=== PATIENT | female | born 1995 | race Caucasian/White ===

== ENCOUNTER 2021-03-01 00:53 | Inpatient (IN) ==
[2021-03-01] MEDS ORDERED: ONDANSETRON 4 MG/2 ML VIAL IV PRN ×2 (02:10→18:12)
[2021-03-01] MEDS ORDERED: MEPERIDINE 50 MG/1 ML VIAL IV PRN (02:10)
[2021-03-01] MEDS ORDERED: BUTORPHANOL 2 MG/ML VIAL IV PRN (02:10)
[2021-03-01 02:48] LABS: Basophils % 0.2 % (0.0-0.8); Eosinophils # 0.1 10*3/uL (0.0-0.87); Eosinophils % 1.2 % (0.00-10.9); Hematocrit 31.9 VOL% (35.7-47.0); Hemoglobin 10.2 GM/DL (12.0-16.0); Immature Granulocytes % 0.7 %; Immature Granulocytes Absolute 0.06 #; Lymphocytes # 1.7 10*3/uL (1.4-4.0); Lymphocytes % 19.6 % (21.3-54.2); Mean Corpuscular Volume 88.4 FL (87-102); Mean Platelet Volume 12.9 FL (9.6-12.0); Monocytes % 9.1 % (1.7-12.7); Neutrophils % 69.2 % (38.7-73.9); Platelet Count 168 T/CUMM (130-400); Red Blood Count 3.61 MC/CUMM (3.8-5.5); Red Cell Distribution Width 14.5 % (9.3-17.3); White Blood Count 8.6 T/CUMM (4-12)
[2021-03-01 03:41] LABS: Alanine Aminotransferase 13 U/L (13-56); Albumin 2.6 G/DL (3.4-5.0); Alkaline Phosphatase 137 U/L (45-117); Aspartate Amino Transferase 15 U/L (0-37); Bilirubin,Total < 0.39 MG/DL (0.20-1.00); Blood Urea Nitrogen 5 MG/DL (7-18); Calcium 9.2 MG/DL (8.5-10.1); Carbon Dioxide 24 MMOL/L (21-32); Estimated Glom Filtration Rate 201 ML/MIN; Glucose 95 MG/DL (74-106); Osmolality,Calculated 269.8 MOS/KG (273-304); Potassium 3.4 MMOL/L (3.5-5.1); Sodium 137 MMOL/L (136-145); Total Protein 7.2 G/DL (6.4-8.2)
[2021-03-01] MEDS ORDERED: ACETAMINOPHEN 325 MG TABLET PO PRN ×2 (03:47→18:12)
[2021-03-01] MEDS: LACTATED RINGERS 1,000 ML IV SCH ×2 (09:43→11:23)
[2021-03-01] MEDS ORDERED: NALOXONE 0.4 MG/ML VIAL IV PRN (09:48)
[2021-03-01] MEDS ORDERED: FAMOTIDINE 20 MG/2 ML VIAL IV ONE (09:48)
[2021-03-01] MEDS ORDERED: ONDANSETRON 4 MG/2 ML VIAL IV ONE (09:48)
[2021-03-01] MEDS ORDERED: hydrOXYzine HCL 25 MG/1 ML VIAL IM PRN (09:48)
[2021-03-01] MEDS ORDERED: diphenhydrAMINE 50 MG/1 ML VIAL IV PRN ×2 (09:48)
[2021-03-01] MEDS ORDERED: ePHEDrine 50 MG/ML VIAL IV PRN (09:48)
[2021-03-01] MEDS ORDERED: CITRIC ACID/SODIUM CITRATE 30 ML UDCUP PO ONE (09:48)
[2021-03-01] MEDS ORDERED: PROMETHAZINE 25 MG/1 ML VIAL IM ONE (09:48)
[2021-03-01] MEDS ORDERED: fentaNYL 2 MCG/ROPIV 0.2% EPID 100 ML EPIDURAL SCH (10:00)
[2021-03-01] MEDS ORDERED: OXYTOCIN/LR 20 UNIT/1,000 ML BAG IV SCH (12:30)
[2021-03-01] MEDS ORDERED: LIDOCAINE MPF 2% /EPI 20 ML VIAL ONE (16:57)
[2021-03-01] MEDS ORDERED: OXYTOCIN 10 UNIT/ML VIAL IM ONE (17:03)
[2021-03-01] MEDS ORDERED: TRANEXAMIC ACID 1,000 MG/10 ML VIAL ONE ×2 (17:12→17:38)
[2021-03-01] MEDS ORDERED: miSOPROStoL 200 MCG TABLET ONE (17:12)
[2021-03-01] MEDS ORDERED: OXYTOCIN/LR 0 UNIT/0 ML BAG IV ONE (17:12)
[2021-03-01] MEDS ORDERED: METHYLERGONOVINE 0.2 MG/1 ML AMP ONE ×2 (17:13→17:38)
[2021-03-01] MEDS ORDERED: CARBOPROST TROMETHAMINE 250 MCG/ML AMP IM ONE ×2 (17:14→17:38)
[2021-03-01] MEDS ORDERED: OXYTOCIN/LR 30 UNIT/1,000 ML BAG IV ONE (17:22)
[2021-03-01] MEDS ORDERED: ONDANSETRON 4 MG/2 ML VIAL ONE (17:43)
[2021-03-01] MEDS ORDERED: PHENYLEPHRINE 1 MG/10 ML SYRINGE IV ONE (17:43)
[2021-03-01 17:52] LABS: Cord Arterial Blood HCO3 23.3 MMOL/L
[2021-03-01 17:54] LABS: Cord Venous Blood PCO2 44.6 MMHG; Cord Venous Blood PO2 25.1
[2021-03-01] MEDS ORDERED: propofoL 200 MG/20 ML VIAL IV ONE (17:59)
[2021-03-01] MEDS ORDERED: LACTATED RINGERS 1,000 ML IV ONE (18:00)
[2021-03-01] MEDS ORDERED: OXYTOCIN/LR 20 UNIT/1,000 ML BAG IV ONE (18:12)
[2021-03-01] MEDS ORDERED: RHO(D) IMMUNE GLOBULIN 300 MCG SYRINGE IM ONE (18:12)
[2021-03-01] MEDS ORDERED: SIMETHICONE CHEW 80 MG TABLET PO PRN (18:12)
[2021-03-01] MEDS ORDERED: LACTATED RINGERS 1,000 ML IV SCH (18:30)
[2021-03-01] MEDS: IBUPROFEN 800 MG TABLET PO PRN (21:14)
[2021-03-02] MEDS: ceFAZolin 2,000 MG/50 ML DUPLEX IV SCH ×2 (02:12→09:46)
[2021-03-02 02:18] LABS: Basophils % 0.2 % (0.0-0.8); Eosinophils # 0.1 10*3/uL (0.0-0.87); Eosinophils % 0.5 % (0.00-10.9); Hematocrit 31.7 VOL% (35.7-47.0); Hemoglobin 10.3 GM/DL (12.0-16.0); Immature Granulocytes % 0.6 %; Immature Granulocytes Absolute 0.06 #; Lymphocytes # 1.1 10*3/uL (1.4-4.0); Lymphocytes % 10.3 % (21.3-54.2); Mean Corpuscular HGB Conc 32.5 GM/DL (32-36); Mean Corpuscular Volume 88.1 FL (87-102); Mean Platelet Volume 12.4 FL (9.6-12.0); Monocytes % 7.8 % (1.7-12.7); Neutrophils % 80.6 % (38.7-73.9); Platelet Count 134 T/CUMM (130-400); Red Cell Distribution Width 14.6 % (9.3-17.3); White Blood Count 10.7 T/CUMM (4-12)
[2021-03-02 04:22] LABS: Hypochromasia 1+; Lymphocytes 10 % (20-55); Segmented Neutrophils 85 % (50-85); Total Cells Counted 100
[2021-03-02 04:23] LABS: Microcytosis 1+; Platelet Estimate Adequate
[2021-03-02] MEDS: METOCLOPRAMIDE 10 MG TABLET PO SCH ×3 (09:36→23:31)
[2021-03-02] MEDS: MULTIVITAMIN (PRENATAL) TABLET PO SCH (09:36)
[2021-03-02] MEDS: DOCUSATE SODIUM 100 MG CAPSULE PO SCH ×2 (09:36→21:35)
[2021-03-02] MEDS: MAGNESIUM HYDROXIDE SUSP 30 ML UDCUP PO PRN ×2 (09:36→21:35)
[2021-03-02 10:03] LABS: Basophils % 0.2 % (0.0-0.8); Eosinophils # 0.1 10*3/uL (0.0-0.87); Eosinophils % 0.8 % (0.00-10.9); Hematocrit 31.7 VOL% (35.7-47.0); Hemoglobin 10.2 GM/DL (12.0-16.0); Immature Granulocytes % 0.7 %; Immature Granulocytes Absolute 0.07 #; Lymphocytes % 9.8 % (21.3-54.2); Mean Corpuscular HGB Conc 32.2 GM/DL (32-36); Mean Corpuscular Volume 88.5 FL (87-102); Mean Platelet Volume 12.1 FL (9.6-12.0); Monocytes % 7.9 % (1.7-12.7); Neutrophils % 80.6 % (38.7-73.9); Platelet Count 159 T/CUMM (130-400); Red Blood Count 3.58 MC/CUMM (3.8-5.5); Red Cell Distribution Width 14.7 % (9.3-17.3); White Blood Count 9.7 T/CUMM (4-12)
[2021-03-02 10:27] LABS: Eosinophils 2 % (0-10); Hypochromasia 1+; Lymphocytes 9 % (20-55); Microcytosis 1+; Platelet Estimate Adequate; Segmented Neutrophils 79 % (50-85); Total Cells Counted 100
[2021-03-02] MEDS: IBUPROFEN 800 MG TABLET PO PRN ×2 (14:34→21:53)
[2021-03-02] MEDS ORDERED: SERTRALINE 50 MG TABLET PO SCH ×2 (21:00)
[2021-03-03] MEDS: MULTIVITAMIN (PRENATAL) TABLET PO SCH (08:18)
[2021-03-03] MEDS: METOCLOPRAMIDE 10 MG TABLET PO SCH (08:18)
[2021-03-03] MEDS: DOCUSATE SODIUM 100 MG CAPSULE PO SCH (08:19)
[2021-03-03 11:42] VITALS: BP 122/62
[2021-03-03] MEDS: IBUPROFEN 800 MG TABLET PO PRN (15:23)
== END 2021-03-03 16:05 | disposition home or self-care (01) | DRG 540 ==
LOC: N.OB 00:53 → N.LD 05:05 → N.OB 23:50
PROVIDERS: ADMIT Obstetrics & Gynecology; ATTEND Obstetrics & Gynecology
PROC: LDCSECT (ICD-10-PCS; 2021-03-01 16:30)